=== PATIENT | female | born 1990 | race African-American/Black ===

== ENCOUNTER 2016-11-03 06:12 | Emergency (ER) | payer MEDICAID, OTHER ==
[~2016-11-03] VITALS: Ht 149.9 cm; Wt 90.0 kg
[2016-11-03 06:16] VITALS: BP 179/102; PULSE 102; RESP 20; TEMP 97.7; O2SAT 98
[2016-11-03] MEDS ORDERED: NUVAMIS VAGINAL (06:25)
[2016-11-03 06:41] VITALS: BP 177/100; PULSE 73; RESP 20; O2SAT 100
--- NOTE | 2016-11-03 06:57 | PD ---
HPI Chief Complaint: Abdominal Pain Time Seen by Provider: 06:30 Travel History International Travel<30 days: No Contact w/Intl Traveler<30days: No Traveled to known affect area: No History of Present Illness HPI The patient is a 26 year old at 26 male who presents to the [facility] emergency department with a history of right flank pain that she reports awoke her from sound sleep prior to arrival. The patient reports that the pain radiates around to the abdomen. She reports that the pain is constant. She reports that the pain is severe and like an aching sensation. She denies ever having a kidney stone previously. She denies any family history of kidney stones. She reports having nausea but no vomiting. She denies having any diarrhea. She denies any fevers or chills. She reports having dysuria with her last urination, however prior to that she had no dysuria. She denies any urinary frequency or urgency. She reports that her urine is darker than usual. The patient denies any recent fevers, cough, congestion, neck pain, chest pain, shortness of breath, or neurologic symptoms. LMP: October 18, [facility] Past Medical History Narrative Medical The patient's past medical history is significant for polycystic ovarian syndrome. Asthma: Yes Diminished Hearing: No Medical other: Yes (PCOS ) Influenza Vaccination: No ?: Not LMP: 10/18/16 Past Surgical History Narrative Surgical The patient's past surgical history is reportedly none. Surgical History: No Previous Surgery Social History Alcohol Use: Yes (SOCIALLY ) Tobacco Use: No Substance Use: No Allergies-Medications (Allergen,Severity, Reaction): Coded Allergies: Latex (Verified Allergy, Intermediate, 11/03/16) Reported Meds & Prescriptions Reported Meds & Active Scripts Active Reported Nuvaring Vaginal Insert (Etonogestrel-Ethinyl Estradiol Vaginal Insert) 0.120- 0.015 Mg/24 Hr Vagring 1 Applic VAGINAL DIRECTED Review of Systems Except as stated in HPI: all other systems reviewed are Neg General / Constitutional: No: Fever Eyes: No: Visual changes HENT: No: Headaches Cardiovascular: No: Chest Pain or Discomfort Respiratory: No: Shortness of Breath Gastrointestinal: Positive: Nausea, Abdominal Pain, No: Vomiting, Diarrhea, Hematochezia, Constipation, Changes in Bowel Habits, Indigestion, Loss of Appetite Genitourinary: Positive: Dysuria, Flank Pain (right flank pain), No: Urgency, Frequency Musculoskeletal: No: Pain Skin: No Rash Neurologic: No: Weakness Psychiatric: No: Depression Endocrine: No: Polydipsia Hematologic/Lymphatic: No: Easy Bruising Physical Exam Narrative General: The patient is a well-developed well-nourished female, uncomfortable appearing on arrival, having difficulty sitting still due to the pain. Head and Neck exam: Head is normocephalic atraumatic. Eyes: EOMI, pupils are equal round and reactive to light. Nose: Midline septum with pink mucous membranes Mouth: Dentition unremarkable. Moist mucus membranes. Posterior oropharynx is not erythematous. No tonsillar hypertrophy. Uvula midline. Airway patent. Neck: No palpable lymphadenopathy. No nuchal rigidity. No thyromegaly. Cardiovascular: Regular rate and rhythm without murmurs, gallops, or rubs. Lungs: Clear to auscultation bilaterally. No wheezes, rhonchi, or rales. Abdomen: Soft, without tenderness to palpation in all 4 quadrants of the abdomen. No guarding, rebound, or rigidity. Normal bowel sounds are audible. No tenderness on palpation of McBurney's point. Negative Bain's sign. Extremities: No clubbing, cyanosis, or edema. No calf tenderness on palpation. Back: No spinous process tenderness to palpation. The patient has right-sided CVA tenderness on palpation. Neurologic Exam: grossly nonfocal. Skin Exam: No rash noted. Intact skin that is warm and dry. Data Data Last Documented VS Vital Signs Date Time Temp Pulse Resp B/P Pulse Ox O2 Delivery O2 Flow Rate FiO2 11/03/16 06:41 73 20 177/100 100 Room Air 11/03/16 06:16 97.7 Orders Electrocardiogram (11/03/16 06:46) Complete Blood Count With Diff (11/03/16 06:46) Comprehensive Metabolic Panel (11/03/16 06:46) C-Reactive Protein (Crp) (11/03/16 06:46) Lipase (11/03/16 06:46) Urinalysis - C+S If Indicated (11/03/16 06:46) Magnesium (Mg) (11/03/16 06:46) Iv Access Insert/Monitor (11/03/16 06:46) Ecg Monitoring (11/03/16 06:46) Oximetry (11/03/16 06:46) Ct Abd/Pel W/O Iv Contrast (11/03/16 06:46) Ed Urine Pregnancytest Poc (11/03/16 06:46) [facility] Medical Decision Making Medical Screen Exam Complete: Yes Emergency Medical Condition: Yes Medical Record Reviewed: Yes Differential Diagnosis Pyelonephritis, versus kidney stone, versus musculoskeletal strain, versus muscle spasm Narrative Course During the course of the patients emergency department visit, the patients history, examination, and differential diagnosis were reviewed with the patient. The patient had IV access obtained and blood work sent for analysis. The patient was placed on a surveillance monitor with oximetry and blood pressure monitoring. A CT scan of the abdomen and pelvis was ordered. The patient was initially provided normal saline 1 L IV fluid bolus, Toradol 15 mg IV, Zofran 4 mg IV. The patients laboratory studies and imaging are pending at the conclusion of my shift. The patient's case will be checked out to the oncoming emergency physician for disposition based on the results. Diagnosis Primary Impression: Right flank pain Betsy Ferrell MD November 03, 2016 06:57
[2016-11-03 06:59] LABS: AUTOMATED NEUTROPHIL # 1.8 TH/MM3 (1.8-7.7); BASOPHIL % 0.3 % (0.0-2.0); EOSINOPHIL # 0.1 TH/MM3 (0-0.4); EOSINOPHIL % 1.9 % (0.0-4.0); HEMATOCRIT 36.5 % (35.0-46.0); LYMPH % 55.2 % (9.0-44.0); LYMPHOCYTE # 2.7 TH/MM3 (1.0-4.8); MEAN CELL VOLUME 80.2 FL (80.0-100.0); MEAN CORPUSCULAR HEMOGLOBIN 26.9 PG (27.0-34.0); MEAN CORPUSCULAR HGB CONC 33.6 % (32.0-36.0); NEUT % 35.6 % (16.0-70.0); PLATELET COUNT 278 TH/MM3 (150-450); RED BLOOD COUNT 4.55 MIL/MM3 (4.00-5.30); RED CELL DISTRIBUTION WIDTH 14.1 % (11.6-17.2)
[2016-11-03 07:00] LABS: HEMO FLAGS AUTO DIFF
[2016-11-03] MEDS ORDERED: KETOROLAC TROMETHAMINE 30 MG/ML (IVP) VIAL IV PUSH ONE (07:00)
[2016-11-03] MEDS ORDERED: ONDANSETRON HCL 4 MG/2 ML VIAL IV ONE (07:00)
[2016-11-03] MEDS ORDERED: SODIUM CHLOR 0.9% 1000 ML INJ 1,000 ML IV ONE (07:00)
[2016-11-03 07:15] LABS: BACTERIA, URINE MOD /hpf; BLOOD, URINE MOD (NEG); COMMENT (UR) CULTURE INDICATED; CULTURE IF INDICATED CULTURE INDICATED; GLUCOSE,URINE NEG (NEG); KETONE, URINE TRACE mg/dL (NEG); MUCUS URINE MANY /lpf (OCC); NITRITE,URINE NEG (NEG); PH, URINE 5.5 (5.0-8.5); SQUAMOUS EPITHELIAL CELL URINE 7 /hpf (0-5); TRANSITIONAL EPI CELLS, URINE <1 /hpf; URINE COLOR YELLOW (YELLW/STRAW)
[2016-11-03 07:16] VITALS: O2SAT 100
[2016-11-03 07:34] LABS: ALT (GPT) 18 U/L (10-53); ANION GAP 7 MEQ/L (5-15); AST (GOT) 16 U/L (15-37); BLOOD UREA NITROGEN 10 MG/DL (7-18); CHLORIDE 109 MEQ/L (98-107); GLOMERULAR FILTRATION RATE 106 ML/MIN (>89); MAGNESIUM 2.3 MG/DL (1.5-2.5); POTASSIUM 3.8 MEQ/L (3.5-5.1); SODIUM (NA) 139 MEQ/L (136-145)
[2016-11-03 07:36] LABS: ALKALINE PHOSPHATASE 69 U/L (45-117); BANDS 1 % (0-6); EOSINOPHILS 1 % (0-4); NEUTROPHIL # MANUAL DIFF 1.7 TH/MM3 (1.8-7.7); POLYS (SEG NEUTROPHILS) 33 % (16-70); TOTAL BILIRUBIN ADULT 0.2 MG/DL (0.2-1.0); WBC DIFF SAMPLE 100
[2016-11-03 07:37] LABS: PLATELET ESTIMATE SMEAR NORMAL (NORMAL); PLATELET MORPHOLOGY NORMAL (NORMAL); SCAN/DIFF FINAL DIFF MANUAL
--- NOTE | 2016-11-03 07:46 | PD ---
Physical Exam Narrative Patient was seen by ED physician and signed out to me. Data Data Last Documented VS Vital Signs Date Time Temp Pulse Resp B/P Pulse Ox O2 Delivery O2 Flow Rate FiO2 11/03/16 07:16 100 Room Air 11/03/16 06:41 73 20 177/100 11/03/16 06:16 97.7 Orders Electrocardiogram (11/03/16 06:46) Complete Blood Count With Diff (11/03/16 06:46) Comprehensive Metabolic Panel (11/03/16 06:46) C-Reactive Protein (Crp) (11/03/16 06:46) Lipase (11/03/16 06:46) Urinalysis - C+S If Indicated (11/03/16 06:46) Magnesium (Mg) (11/03/16 06:46) Iv Access Insert/Monitor (11/03/16 06:46) Ecg Monitoring (11/03/16 06:46) Oximetry (11/03/16 06:46) Ct Abd/Pel W/O Iv Contrast (11/03/16 06:46) Ed Urine Pregnancytest Poc (11/03/16 06:46) Sodium Chlor 0.9% 1000 Ml Inj (Ns 1000 M (11/03/16 07:00) Ondansetron Inj (Zofran Inj) (11/03/16 07:00) Ketorolac Inj (Toradol Inj) (11/03/16 07:00) Urine Culture (11/03/16 06:45) Labs Laboratory Tests Test 11/03/16 06:45 White Blood Count 5.0 TH/MM3 Red Blood Count 4.55 MIL/MM3 Hemoglobin 12.2 GM/DL Hematocrit 36.5 % Mean Corpuscular Volume 80.2 FL Mean Corpuscular Hemoglobin 26.9 PG Mean Corpuscular Hemoglobin 33.6 % Concent Red Cell Distribution Width 14.1 % Platelet Count 278 TH/MM3 Mean Platelet Volume 6.9 FL Neutrophils (%) (Auto) 35.6 % Lymphocytes (%) (Auto) 55.2 % Monocytes (%) (Auto) 7.0 % Eosinophils (%) (Auto) 1.9 % Basophils (%) (Auto) 0.3 % Neutrophils # (Auto) 1.8 TH/MM3 Lymphocytes # (Auto) 2.7 TH/MM3 Monocytes # (Auto) 0.3 TH/MM3 Eosinophils # (Auto) 0.1 TH/MM3 Basophils # (Auto) 0.0 TH/MM3 CBC Comment AUTO DIFF Differential Total Cells 100 Counted Neutrophils % (Manual) 33 % Band Neutrophils % 1 % Lymphocytes % 58 % Monocytes % 7 % Eosinophils % 1 % Neutrophils # (Manual) 1.7 TH/MM3 Differential Comment FINAL DIFF MANUAL Platelet Estimate NORMAL Platelet Morphology Comment NORMAL Red Cell Morphology Comment NORMAL Urine Color YELLOW Urine Turbidity HAZY Urine pH 5.5 Urine Specific [place] 1.035 Urine Protein TRACE mg/dL Urine Glucose (UA) NEG mg/dL Urine Ketones TRACE mg/dL Urine Occult Blood MOD Urine Nitrite NEG Urine Bilirubin NEG Urine Urobilinogen 2.0 MG/DL Urine Leukocyte Esterase NEG Urine RBC 36 /hpf Urine WBC 2 /hpf Urine Squamous Epithelial 7 /hpf Cells Urine Transitional Epithelial <1 /hpf Cells Urine Bacteria MOD /hpf Urine Mucus MANY /lpf Microscopic Urinalysis Comment CULTURE INDICATED Sodium Level 139 MEQ/L Potassium Level 3.8 MEQ/L Chloride Level 109 MEQ/L Carbon Dioxide Level 23.0 MEQ/L Anion Gap 7 MEQ/L Blood Urea Nitrogen 10 MG/DL Creatinine 0.79 MG/DL Estimat Glomerular Filtration 106 ML/MIN Rate Random Glucose 130 MG/DL Calcium Level 8.7 MG/DL Magnesium Level 2.3 MG/DL Total Bilirubin 0.2 MG/DL Aspartate Amino Transf 16 U/L (AST/SGOT) Alanine Aminotransferase 18 U/L (ALT/SGPT) Alkaline Phosphatase 69 U/L C-Reactive Protein 1.32 MG/DL Total Protein 7.2 GM/DL Albumin 3.5 GM/DL Lipase 139 U/L [facility] Supervised Visit with DESI: No Interpretation(s) 7:49 AM. CBC within normal limit. CMP within normal limit. C-reactive protein 1.32. UA positive for RBC and bacteria. 8:[address] scan abdomen and pelvis shows tiny probable bilateral renal cysts. No acute obstructive uropathy. Narrative Course 8 21 AM. Reexamination patient is pain-free now. Diagnosis Primary Impression: Right flank pain Patient Instructions: General Instructions Additional Instruction: Take medications as needed for pain. Follow-up with personal physician. Return if worse. Med/Other Pt SpecificInfo: Prescription(s) given Scripts Methocarbamol (Robaxin)750 Mg [id number] Mg PO QID #40 TAB Prov:Juan Jose Torres MD 11/03/16 Meloxicam (Mobic)15 Mg Tab15 Mg PO DAILY #20 TAB Prov:Juan Jose Torres MD 11/03/16 Disposition: 01 DISCHARGE HOME Condition: Stable Juan Jose Torres MD November 03, 2016 07:46
--- NOTE | 2016-11-03 08:11 | RADRPT ---
EXAM DATE/TIME: 11/03/2016 07:42 [place] COMPARISON: No previous studies available for comparison. INDICATIONS : Right side flank pain. ORAL CONTRAST: No oral contrast ingested. RADIATION DOSE: 24.97 CTDIvol (mGy) MEDICAL HISTORY : None SURGICAL HISTORY : None. ENCOUNTER: Initial ACUITY: 1 day PAIN SCALE: 3/10 LOCATION: Right flank TECHNIQUE: Volumetric scanning of the abdomen and pelvis was performed. Using automated exposure control and ad justment of the mA and/or kV according to patient size, radiation dose was kept as low as reasonably achievable to obtain optimal diagnostic quality images. FINDINGS: LOWER LUNGS: The visualized lower lungs are clear. LIVER: Homogeneous density without lesion. There is no dilation of the biliary tree. No calcified gallston es. SPLEEN: Normal size without lesion. PANCREAS: Within normal limits. KIDNEYS: Normal in size and shape. There is no solid mass, stone, or hydronephrosis. Tiny probable cysts are noted bilaterally measuring 7 mm on the right and 10 mm on the left. ADRENAL GLANDS: Within normal limits. VASCULAR: There is no aortic aneurysm. BOWEL/MESENTERY: The stomach, small bowel, and colon demonstrate no acute abnormality. There is no free intraperitone al air or fluid. The appendix is normal. ABDOMINAL WALL: Within normal limits. RETROPERITONEUM: There is no lymphadenopathy. BLADDER: No wall thickening or mass. REPRODUCTIVE: Within normal limits. INGUINAL: There is no lymphadenopathy or hernia. MUSCULOSKELETAL: Within normal limits for patient age. CONCLUSION: 1. No acute obstructive uropathy. 2. No CT evidence of acute appendicitis. 3. Tiny probable bilateral renal cysts measuring 7 mm on the right and 10 mm on the left. Mat Saunders MD on November 03, 2016 at 8:04 Board Certified Radiologist. This report was verified electronically.
[2016-11-03] MEDS ORDERED: MOBI15TA PO (08:22)
[2016-11-03] MEDS ORDERED: ROBA750T PO (08:22)
--- NOTE | 2016-11-04 18:43 | EKG ---
Date Performed: 11/03/2016 Time Performed: 07:25:23 PTAGE: 26 years EKG: SINUS BRADYCARDIA BORDERLINE ECG NO PREVIOUS TRACING DOCTOR: Raj Cardenas Interpretating Date/Time 11/04/2016 18:41:45
== END 2016-11-03 09:01 | disposition home or self-care (01) ==
LOC: NEPC 06:12
DX: R10.9 Unspecified abdominal pain (principal); R11.0 Nausea; R30.0 Dysuria; R00.1 Bradycardia, unspecified; E28.2 Polycystic ovarian syndrome
CPT/HCPCS: 74176; 80053; 81001; 83690; 83735; 84703; 85007; 85027; 86140; 87086; 93005; 96361; 96374; 96375; 99284; J1885; J2405; J7030